=== PATIENT | male | born 1955 | race Hispanic/Latino ===

== ENCOUNTER 2017-08-08 18:55 | Inpatient (IN) | payer MEDICARE, OTHER ==
[~2017-08-08] VITALS: Ht 177.8 cm; Wt 86.3 kg
[~2017-08-08 18:55] MED LIST: ASPI81TA40 PO; ATOR40TA69 PO; ISOS120T10 PO; LISI10TA7 PO; METO25TA6 PO; RANO10003 PO; SPIR25TA6 PO
[2017-08-08] MEDS ORDERED: ASPIRIN 325 MG TABLET ONE (19:46)
[2017-08-08] MEDS ORDERED: NITROGLYCERIN 1GM/1 INCH PACKET TD ONE (19:46)
[2017-08-08 19:49] LABS: BASOPHILS % (AUTO) 0.4 % (0.0-5.0); EOSINOPHILS % (AUTO) 0.4 % (0.0-8.0); HEMATOCRIT 34.9 % (42-54); LYMPHOCYTES % (AUTO) 22.5 % (21.0-51.0); MEAN CORPUSCULAR HEMOGLOBIN 30.2 pg (27.0-33.0); MEAN CORPUSCULAR HGB CONC 34.9 g/dL (32.0-36.0); MEAN CORPUSCULAR VOLUME 86.6 fL (79-99); MONOCYTES % (AUTO) 8.7 % (3.0-13.0); PLATELET COUNT (AUTO) 229 K/uL (130-400); RED BLOOD CELL COUNT(AUTO) 4.03 MIL/uL (4.50-6.20); RED CELL DISTRIBUTION WIDTH 12.9 % (11.0-15.5); WHITE BLOOD COUNT (AUTO) 7.4 K/uL (4.8-10.8)
[2017-08-08 19:50] LABS: APPEARANCE,URINE Clear (CLEAR); BILIRUBIN,URINE Negative (NEGATIVE); COLOR,URINE Dark Yellow (YELLOW); GLUCOSE, URINE (UA) Negative (NEGATIVE); KETONES,URINE Negative (NEGATIVE); LEUKOCYTE ESTERASE ,URINE Negative (NEGATIVE); NITRATE,URINE Negative (NEGATIVE); OCCULT BLOOD,URINE Negative (NEGATIVE); PH,URINE 5.5 (5.0-8.0); PROTEIN,URINE POS 1+ (NEGATIVE)
[2017-08-08 19:58] LABS: CARBON DIOXIDE 25 mmol/L (21-32); CHLORIDE 102 mmol/L (101-111); CREATININE 1.1 mg/dL (0.5-1.5); GLOMERULAR FILTR. RATE CALC 73 mL/min (>60); GLUCOSE,RANDOM 100 mg/dL (70-105); POTASSIUM 4.1 mmol/L (3.5-5.1); SODIUM SERUM 137 mmol/L (136-145); UREA NITROGEN, BLOOD 14 mg/dL (7-18)
[2017-08-08 19:59] LABS: INR 1.13 (0.85-1.15); PARTIAL THROMBOPLASTIN TIME 29.6 SEC (26.3-35.5); PROTHROMBIN TIME 11.8 SEC (9.6-11.6)
[2017-08-08 20:06] LABS: BACTERIA,URINE None Seen /HPF (None Seen); MUCUS,URINE Moderate LPF (None Seen); RBC,URINE None Seen /HPF (0-1); SQUAMOUS EPITHELIAL CELL,UR 0-2 /HPF (0-2); WBC,URINE None Seen /HPF (0-1)
[2017-08-08 20:12] LABS: ALANINE AMINOTRANSFERASE 22 U/L (12-78); ALBUMIN 2.5 g/dL (3.5-5.0); ASPARTATE AMINOTRANSFERASE 26 U/L (10-37); BILIRUBIN,TOTAL 0.5 mg/dL (0.2-1.0); CREATINE KINASE MB < 0.5 ng/mL (0.5-3.6); CREATINE KINASE, TOTAL 43 U/L (21-232); MYOGLOBIN 29 ng/mL (10-92); TOTAL PROTEIN, SERUM 8.1 g/dL (6.0-8.3); TROPONIN I < 0.04 ng/mL (0.00-0.06)
[2017-08-08] MEDS ORDERED: CEFTRIAXONE SODIUM 1 GM ONE (22:43)
[2017-08-08] MEDS ORDERED: AZITHROMYCIN 250 MG TABLET PO ONE (22:43)
[2017-08-09] VITALS (7 sets, daily range): BP systolic 96–123; BP diastolic 57–72
[2017-08-09] MEDS ORDERED: IOPAMIDOL-370 75 ML VIAL IV ONE (00:13)
[2017-08-09] MEDS ORDERED: ISOVUE-370 50ML VIAL IV ONE (00:44)
[2017-08-09] MEDS ORDERED: HYDRALAZINE HCL 20 MG/ML VIAL IV PRN (00:45)
[2017-08-09] MEDS ORDERED: CLOP75TA14 PO (02:22)
[2017-08-09] MEDS ORDERED: LISI-617 PO (02:22)
[2017-08-09] MEDS ORDERED: ACETAMINOPHEN EXTRA STRENGTH 500 MG TABLET PO PRN (03:45)
[2017-08-09] MEDS ORDERED: ONDANSETRON HCL MDV 20ML 2 MG/ML VIAL IVP PRN (03:45)
[2017-08-09] MEDS: CEFTRIAXONE SODIUM 1 GM IVP SCH (04:00)
[2017-08-09] MEDS: AZITHROMYCIN 500MG+NS 250ML 250 ML IV SCH (04:00)
[2017-08-09 04:59] LABS: BASOPHILS % (AUTO) 0.3 % (0.0-5.0); EOSINOPHILS % (AUTO) 0.3 % (0.0-8.0); HEMATOCRIT 32.8 % (42-54); LYMPHOCYTES % (AUTO) 26.9 % (21.0-51.0); MEAN CORPUSCULAR HEMOGLOBIN 30.8 pg (27.0-33.0); MEAN CORPUSCULAR HGB CONC 35.2 g/dL (32.0-36.0); MEAN CORPUSCULAR VOLUME 87.5 fL (79-99); MONOCYTES % (AUTO) 10.7 % (3.0-13.0); NEUTROPHILS % (AUTO) 61.8 % (40.0-77.0); PLATELET COUNT (AUTO) 217 K/uL (130-400); RED BLOOD CELL COUNT(AUTO) 3.75 MIL/uL (4.50-6.20); RED CELL DISTRIBUTION WIDTH 12.9 % (11.0-15.5); WHITE BLOOD COUNT (AUTO) 8.4 K/uL (4.8-10.8)
[2017-08-09] MEDS: IPRATROPIUM/ALBUTEROL SULFATE 3 ML SOLUTION IH SCH ×3 (05:05→19:10)
[2017-08-09 05:19] LABS: ALBUMIN 2.3 g/dL (3.5-5.0); BILIRUBIN,TOTAL 0.5 mg/dL (0.2-1.0); CREATININE 1.1 mg/dL (0.5-1.5); POTASSIUM 3.8 mmol/L (3.5-5.1); TOTAL PROTEIN, SERUM 7.7 g/dL (6.0-8.3)
[2017-08-09] MEDS: GUAIFENESIN-DM 200/20 MG 10 ML PO SCH ×3 (08:57→19:48)
[2017-08-09] MEDS: FAMOTIDINE 20MG TAB 20 MG TAB PO SCH ×2 (08:57→19:46)
[2017-08-09] MEDS: ENOXAPARIN SODIUM 40 MG/0.4 ML SYRINGE SQ SCH (08:58)
[2017-08-10] MEDS: IPRATROPIUM/ALBUTEROL SULFATE 3 ML SOLUTION IH SCH ×5 (00:42→23:20)
[2017-08-10 04:00] VITALS: BP 98/56
[2017-08-10] MEDS: AZITHROMYCIN 500MG+NS 250ML 250 ML IV SCH (04:35)
[2017-08-10] MEDS: CEFTRIAXONE SODIUM 1 GM IVP SCH (04:35)
[2017-08-10 05:15] LABS: BASOPHILS % (AUTO) 0.4 % (0.0-5.0); EOSINOPHILS % (AUTO) 0.2 % (0.0-8.0); HEMATOCRIT 32.5 % (42-54); MEAN CORPUSCULAR HEMOGLOBIN 30.6 pg (27.0-33.0); MEAN CORPUSCULAR HGB CONC 35.2 g/dL (32.0-36.0); NEUTROPHILS % (AUTO) 65.4 % (40.0-77.0); PLATELET COUNT (AUTO) 227 K/uL (130-400); RED BLOOD CELL COUNT(AUTO) 3.73 MIL/uL (4.50-6.20); RED CELL DISTRIBUTION WIDTH 12.8 % (11.0-15.5); WHITE BLOOD COUNT (AUTO) 6.3 K/uL (4.8-10.8)
[2017-08-10 05:26] LABS: POTASSIUM 3.8 mmol/L (3.5-5.1)
[2017-08-10 07:55] VITALS: BP 98/57
[2017-08-10] MEDS: GUAIFENESIN-DM 200/20 MG 10 ML PO SCH ×3 (08:32→21:20)
[2017-08-10] MEDS: FAMOTIDINE 20MG TAB 20 MG TAB PO SCH ×2 (08:32→21:19)
[2017-08-10] MEDS: ENOXAPARIN SODIUM 40 MG/0.4 ML SYRINGE SQ SCH (08:33)
[2017-08-10 11:14] VITALS: BP 100/61
[2017-08-10 16:43] VITALS: BP 100/64
[2017-08-10 19:40] VITALS: BP 110/63
[2017-08-10 23:25] VITALS: BP 115/65
[2017-08-11 03:45] VITALS: BP 105/62
[2017-08-11] MEDS: CEFTRIAXONE SODIUM 1 GM IVP SCH (05:05)
[2017-08-11] MEDS: AZITHROMYCIN 500MG+NS 250ML 250 ML IV SCH (05:05)
[2017-08-11] MEDS: IPRATROPIUM/ALBUTEROL SULFATE 3 ML SOLUTION IH SCH ×3 (05:55→19:09)
[2017-08-11] MEDS: FAMOTIDINE 20MG TAB 20 MG TAB PO SCH ×2 (08:28→19:59)
[2017-08-11] MEDS: GUAIFENESIN-DM 200/20 MG 10 ML PO SCH ×3 (08:28→19:59)
[2017-08-11] MEDS: ENOXAPARIN SODIUM 40 MG/0.4 ML SYRINGE SQ SCH (08:32)
[2017-08-11 08:46] VITALS: BP 97/55
[2017-08-11 11:43] VITALS: BP 100/64
[2017-08-11 16:55] VITALS: BP 103/58
[2017-08-11 20:00] VITALS: BP 105/60
[2017-08-12] VITALS: BP 117/72
[2017-08-12] MEDS: IPRATROPIUM/ALBUTEROL SULFATE 3 ML SOLUTION IH SCH ×5 (00:20→22:57)
[2017-08-12 04:00] VITALS: BP 107/65
[2017-08-12] MEDS: CEFTRIAXONE SODIUM 1 GM IVP SCH (04:37)
[2017-08-12] MEDS: AZITHROMYCIN 500MG+NS 250ML 250 ML IV SCH (04:37)
[2017-08-12 04:45] LABS: BASOPHILS % (AUTO) 0.6 % (0.0-5.0); EOSINOPHILS % (AUTO) 2.5 % (0.0-8.0); HEMATOCRIT 32.2 % (42-54); LYMPHOCYTES % (AUTO) 22.9 % (21.0-51.0); MEAN CORPUSCULAR HEMOGLOBIN 31.2 pg (27.0-33.0); MEAN CORPUSCULAR HGB CONC 35.7 g/dL (32.0-36.0); MEAN CORPUSCULAR VOLUME 87.6 fL (79-99); MONOCYTES % (AUTO) 8.8 % (3.0-13.0); NEUTROPHILS % (AUTO) 65.2 % (40.0-77.0); PLATELET COUNT (AUTO) 285 K/uL (130-400); RED BLOOD CELL COUNT(AUTO) 3.67 MIL/uL (4.50-6.20); WHITE BLOOD COUNT (AUTO) 5.8 K/uL (4.8-10.8)
[2017-08-12 07:26] VITALS: BP 102/70
[2017-08-12] MEDS: FAMOTIDINE 20MG TAB 20 MG TAB PO SCH ×2 (08:38→21:43)
[2017-08-12] MEDS: GUAIFENESIN-DM 200/20 MG 10 ML PO SCH ×3 (08:38→21:43)
[2017-08-12] MEDS: ENOXAPARIN SODIUM 40 MG/0.4 ML SYRINGE SQ SCH (08:39)
[2017-08-12 12:12] VITALS: BP 96/53
[2017-08-12 17:29] VITALS: BP 111/59
[2017-08-12 19:45] VITALS: BP 114/59
[2017-08-13] VITALS: BP 102/55
[2017-08-13 03:57] LABS: BASOPHILS % (AUTO) 0.7 % (0.0-5.0); LYMPHOCYTES % (AUTO) 22.3 % (21.0-51.0); MEAN CORPUSCULAR HEMOGLOBIN 29.6 pg (27.0-33.0); MEAN CORPUSCULAR HGB CONC 34.3 g/dL (32.0-36.0); MEAN CORPUSCULAR VOLUME 86.1 fL (79-99); PLATELET COUNT (AUTO) 311 K/uL (130-400); RED BLOOD CELL COUNT(AUTO) 3.84 MIL/uL (4.50-6.20); RED CELL DISTRIBUTION WIDTH 12.8 % (11.0-15.5); WHITE BLOOD COUNT (AUTO) 5.9 K/uL (4.8-10.8)
[2017-08-13 04:10] LABS: CREATININE 0.9 mg/dL (0.5-1.5); POTASSIUM 4.1 mmol/L (3.5-5.1)
[2017-08-13 04:24] VITALS: BP 113/60
[2017-08-13] MEDS: CEFTRIAXONE SODIUM 1 GM IVP SCH (04:39)
[2017-08-13] MEDS: AZITHROMYCIN 500MG+NS 250ML 250 ML IV SCH (04:39)
[2017-08-13 07:30] VITALS: BP 113/64
[2017-08-13] MEDS: IPRATROPIUM/ALBUTEROL SULFATE 3 ML SOLUTION IH SCH ×2 (07:30→11:59)
[2017-08-13] MEDS: ENOXAPARIN SODIUM 40 MG/0.4 ML SYRINGE SQ SCH (09:03)
[2017-08-13] MEDS: FAMOTIDINE 20MG TAB 20 MG TAB PO SCH (09:04)
[2017-08-13] MEDS: GUAIFENESIN-DM 200/20 MG 10 ML PO SCH (09:04)
[2017-08-13 11:00] VITALS: BP 104/60
[2017-08-13] MEDS ORDERED: LEVO500T2 PO (11:42)
[2017-08-13] MEDS ORDERED: FLUC200T8 PO (11:45)
[2017-08-13] MEDS ORDERED: IPRA3AMP24 IH (11:45)
[2017-08-13] MEDS ORDERED: GUAI5SYR PO (12:08)
== END 2017-08-13 15:25 | disposition home or self-care (01) | DRG 190 ==
LOC: EDH 18:55 → EDHIP 23:30 → 4AH 08-09 01:33
PROVIDERS: ADMIT Family Medicine; ATTEND Family Medicine
DX: J44.0 Chronic obstructive pulmonary disease with (acute) lower respiratory infection (principal); J18.9 Pneumonia, unspecified organism; I10 Essential (primary) hypertension; I25.10 Atherosclerotic heart disease of native coronary artery without angina pectoris; F10.10 Alcohol abuse, uncomplicated; F17.210 Nicotine dependence, cigarettes, uncomplicated; R63.4 Abnormal weight loss; D64.9 Anemia, unspecified; E78.5 Hyperlipidemia, unspecified; Z95.1 Presence of aortocoronary bypass graft
CPT/HCPCS: 36415; 71045; 71046; 71250; 71260; 80048; 80053; 81001; 82550; 82553; 83605; 83874; 84484; 85025; 85610; 85730; 87040; 87071; 87077; 87088; 87106; 87186; 87205; 87633; 93005; 94640; 94664; A4218; J0456; J0696; J1650; Q9967

== ENCOUNTER 2017-12-01 17:16 | Inpatient (IN) | payer OTHER ==
[~2017-12-01] VITALS: Ht 175.3 cm; Wt 80.7 kg
[~2017-12-01 17:16] MED LIST changes: -ASPI81TA40 PO; +CLOP75TA14 PO; -ISOS120T10 PO; +ISOS60TA4 PO; +LEVO75TA10 PO; -LISI10TA7 PO; +LORA10TA7 PO; -METO25TA6 PO; -SPIR25TA6 PO
[2017-12-01 17:38] LABS: BASOPHILS % (AUTO) 0.2 % (0.0-5.0); EOSINOPHILS % (AUTO) 0.1 % (0.0-8.0); HEMATOCRIT 31.8 % (42-54); LYMPHOCYTES % (AUTO) 13.6 % (21.0-51.0); MEAN CORPUSCULAR HEMOGLOBIN 28.1 pg (27.0-33.0); MEAN CORPUSCULAR HGB CONC 33.3 g/dL (32.0-36.0); MEAN CORPUSCULAR VOLUME 84.3 fL (79-99); MONOCYTES % (AUTO) 8.8 % (3.0-13.0); NEUTROPHILS % (AUTO) 77.3 % (40.0-77.0); NUCLEATED RED BLOOD CELLS 0.1 % (0.0-0.19); PLATELET COUNT (AUTO) 336 K/uL (130-400); RED BLOOD CELL COUNT(AUTO) 3.77 MIL/uL (4.50-6.20); RED CELL DISTRIBUTION WIDTH 18.1 % (11.0-15.5); WHITE BLOOD COUNT (AUTO) 8.9 K/uL (4.8-10.8)
[2017-12-01 17:45] LABS: APPEARANCE,URINE Clear (CLEAR); BILIRUBIN,URINE Negative (NEGATIVE); COLOR,URINE Yellow (YELLOW); GLUCOSE, URINE (UA) Negative (NEGATIVE); KETONES,URINE Trace mg/dL (NEGATIVE); LEUKOCYTE ESTERASE ,URINE Trace (NEGATIVE); NITRATE,URINE Negative (NEGATIVE); OCCULT BLOOD,URINE Negative (NEGATIVE); PH,URINE 6.5 (5.0-8.0); PROTEIN,URINE Trace (NEGATIVE)
[2017-12-01 17:55] LABS: INR 1.13 (0.85-1.15); PARTIAL THROMBOPLASTIN TIME 29.7 SEC (26.3-35.5); PROTHROMBIN TIME 11.8 SEC (9.6-11.6)
[2017-12-01 17:57] LABS: CARBON DIOXIDE 25 mmol/L (21-32); CHLORIDE 99 mmol/L (101-111); GLOMERULAR FILTR. RATE CALC 81 mL/min (>60); GLUCOSE,RANDOM 103 mg/dL (70-105); SODIUM SERUM 133 mmol/L (136-145); UREA NITROGEN, BLOOD 12 mg/dL (7-18)
[2017-12-01] MEDS ORDERED: CEFTRIAXONE SODIUM 1 GM ONE (17:59)
[2017-12-01 18:07] LABS: ALANINE AMINOTRANSFERASE 17 U/L (12-78); ALBUMIN 2.7 g/dL (3.5-5.0); ASPARTATE AMINOTRANSFERASE 17 U/L (10-37); BILIRUBIN,TOTAL 0.3 mg/dL (0.2-1.0); CREATINE KINASE, TOTAL 14 U/L (21-232); MYOGLOBIN 13 ng/mL (10-92); TOTAL PROTEIN, SERUM 8.7 g/dL (6.0-8.3); TROPONIN I < 0.04 ng/mL (0.00-0.06)
[2017-12-01 18:12] LABS: BACTERIA,URINE None Seen /HPF (None Seen); RBC,URINE None Seen /HPF (0-1); SQUAMOUS EPITHELIAL CELL,UR 0-2 /HPF (0-2); WBC,URINE 0-1 /HPF (0-1)
[2017-12-01] MEDS ORDERED: ZOSYN 3.375GM+NS 50ML 50 ML IV ONE (18:43)
[2017-12-01] MEDS ORDERED: AZITHROMYCIN 250 MG TABLET PO ONE (18:44)
[2017-12-01 19:24] LABS: AMPHET/METH SCREEN,URINE NEGATIVE (NEGATIVE); BARBITURATE SCREEN, URINE NEGATIVE (NEGATIVE); BENZODIAZEPINES SCREEN,URINE NEGATIVE (NEGATIVE); CANNABINOID SCREEN,URINE NEGATIVE (NEGATIVE); COCAINE SCREEN,URINE NEGATIVE (NEGATIVE); OPIATE SCREEN,URINE NEGATIVE (NEGATIVE); PHENCYCLIDINE SCREEN,URINE NEGATIVE (NEGATIVE)
[2017-12-01 21:40] VITALS: BP 130/52
[2017-12-01] MEDS: ACETAMINOPHEN 325 MG TAB PO PRN (22:34)
[2017-12-01] MEDS ORDERED: NITR0.4T50 SL (22:46)
[2017-12-01] MEDS ORDERED: AEC81 PO (22:46)
[2017-12-01] MEDS ORDERED: METO50TA18 PO (22:46)
[2017-12-01] MEDS ORDERED: LISI-617 PO (22:46)
[2017-12-02] VITALS: BP 102/64
[2017-12-02 03:25] VITALS: BP 111/61
[2017-12-02 05:09] LABS: HEMATOCRIT 30.3 % (42-54); MEAN CORPUSCULAR HEMOGLOBIN 28.9 pg (27.0-33.0); MEAN CORPUSCULAR VOLUME 85.2 fL (79-99); PLATELET COUNT (AUTO) 354 K/uL (130-400); RED BLOOD CELL COUNT(AUTO) 3.56 MIL/uL (4.50-6.20); RED CELL DISTRIBUTION WIDTH 18.4 % (11.0-15.5); WHITE BLOOD COUNT (AUTO) 7.3 K/uL (4.8-10.8)
[2017-12-02 05:26] LABS: ALBUMIN 2.3 g/dL (3.5-5.0); BILIRUBIN,TOTAL 0.4 mg/dL (0.2-1.0); POTASSIUM 4.7 mmol/L (3.5-5.1); TOTAL PROTEIN, SERUM 7.9 g/dL (6.0-8.3)
[2017-12-02 08:12] VITALS: BP 119/67
[2017-12-02 12:12] VITALS: BP 102/50
[2017-12-02 15:30] VITALS: BP 97/63
[2017-12-02] MEDS ORDERED: CEFTRIAXONE SODIUM 1 GM IVP SCH (18:00)
[2017-12-02] MEDS ORDERED: AZITHROMYCIN 500MG+NS 250ML 250 ML IV SCH (18:00)
[2017-12-02] MEDS: CEFEPIME HCL 1 GM VIAL IVP SCH ×2 (18:00→21:58)
[2017-12-02] MEDS: LEVOFLOXACIN 500 MG/D5W 100 ML 100 ML IV SCH (18:08)
[2017-12-02] MEDS: FLUCONAZOLE 200 MG/NS 100 ML 100 ML IV SCH (18:08)
[2017-12-02 20:00] VITALS: BP 102/62
[2017-12-02] MEDS: BACTRIM IV SCH (21:58)
[2017-12-02] MEDS: SODIUM CHLORIDE 0.9% IV SCH (21:58)
[2017-12-03] VITALS: BP 100/60
[2017-12-03] MEDS: ACETAMINOPHEN 325 MG TAB PO PRN (00:54)
[2017-12-03] MEDS: SODIUM CHLORIDE 0.9% IV SCH ×3 (03:39→20:55)
[2017-12-03] MEDS: BACTRIM IV SCH ×3 (03:39→20:55)
[2017-12-03 04:00] VITALS: BP 98/68
[2017-12-03] MEDS: CEFEPIME HCL 1 GM VIAL IVP SCH ×3 (05:58→23:10)
[2017-12-03 07:30] VITALS: BP 99/67
[2017-12-03] MEDS: ENOXAPARIN SODIUM 40 MG/0.4 ML SYRINGE SQ SCH (08:50)
[2017-12-03 11:00] VITALS: BP 90/64
[2017-12-03] MEDS: LEVOFLOXACIN 500 MG/D5W 100 ML 100 ML IV SCH (14:36)
[2017-12-03] MEDS: FLUCONAZOLE 200 MG/NS 100 ML 100 ML IV SCH (14:36)
[2017-12-03 15:58] VITALS: BP 100/63
[2017-12-03 20:00] VITALS: BP 119/71
[2017-12-04] VITALS (7 sets, daily range): BP systolic 84–109; BP diastolic 48–66
[2017-12-04] MEDS: BACTRIM IV SCH ×3 (04:53→17:44)
[2017-12-04] MEDS: SODIUM CHLORIDE 0.9% IV SCH ×3 (04:53→17:44)
[2017-12-04 04:58] LABS: HEMATOCRIT 31.2 % (42-54); MEAN CORPUSCULAR HEMOGLOBIN 28.7 pg (27.0-33.0); MEAN CORPUSCULAR HGB CONC 33.6 g/dL (32.0-36.0); MEAN CORPUSCULAR VOLUME 85.3 fL (79-99); PLATELET COUNT (AUTO) 351 K/uL (130-400); RED BLOOD CELL COUNT(AUTO) 3.65 MIL/uL (4.50-6.20); RED CELL DISTRIBUTION WIDTH 18.3 % (11.0-15.5); WHITE BLOOD COUNT (AUTO) 5.4 K/uL (4.8-10.8)
[2017-12-04] MEDS: CEFEPIME HCL 1 GM VIAL IVP SCH ×3 (05:13→22:09)
[2017-12-04 05:17] LABS: ALBUMIN 2.3 g/dL (3.5-5.0); BILIRUBIN,TOTAL 0.2 mg/dL (0.2-1.0); CREATININE 1.1 mg/dL (0.5-1.5); MAGNESIUM 1.9 mg/dL (1.80-2.40); POTASSIUM 4.6 mmol/L (3.5-5.1); TOTAL PROTEIN, SERUM 7.9 g/dL (6.0-8.3)
[2017-12-04] MEDS: ENOXAPARIN SODIUM 40 MG/0.4 ML SYRINGE SQ SCH (08:02)
[2017-12-04 08:19] LABS: HEPATITIS A ANTIBODY IGM Negative (Negative); HEPATITIS B CORE IGM Negative (Negative); HEPATITIS Bs ANTIGEN SCREEN P Negative (Negative)
[2017-12-04] MEDS: FLUCONAZOLE 200 MG/NS 100 ML 100 ML IV SCH (14:33)
[2017-12-04] MEDS: SULFAMETHOXAZOLE IV SCH (18:59)
[2017-12-04] MEDS: DEXTROSE 5% IV SCH (18:59)
[2017-12-04] MEDS: TRIMETHOPRIM IV SCH (18:59)
[2017-12-05] VITALS: BP 105/63
[2017-12-05] MEDS: SULFAMETHOXAZOLE IV SCH ×3 (02:23→20:32)
[2017-12-05] MEDS: DEXTROSE 5% IV SCH ×3 (02:23→20:32)
[2017-12-05] MEDS: TRIMETHOPRIM IV SCH ×3 (02:23→20:32)
[2017-12-05 04:00] VITALS: BP 101/50
[2017-12-05] MEDS: CEFEPIME HCL 1 GM VIAL IVP SCH ×3 (06:14→20:32)
[2017-12-05 07:00] VITALS: BP 90/55
[2017-12-05] MEDS: ENOXAPARIN SODIUM 40 MG/0.4 ML SYRINGE SQ SCH (09:13)
[2017-12-05] MEDS: ACETAMINOPHEN 325 MG TAB PO PRN (09:16)
[2017-12-05 11:00] VITALS: BP 93/54
[2017-12-05] MEDS: FLUCONAZOLE 200 MG/NS 100 ML 100 ML IV SCH (13:56)
[2017-12-05 16:00] VITALS: BP 105/60
[2017-12-05 20:00] VITALS: BP 106/64
[2017-12-05] MEDS: DRONABINOL 2.5 MG CAP PO SCH (20:32)
[2017-12-05] MEDS ORDERED: SODIUM CHLORIDE 3% FOR INHALATION 4 ML/AMP VIAL.NEB IH ONE (21:52)
[2017-12-06] VITALS (7 sets, daily range): BP systolic 95–111; BP diastolic 57–65
[2017-12-06] MEDS: TRIMETHOPRIM IV SCH ×3 (03:08→19:44)
[2017-12-06] MEDS: SULFAMETHOXAZOLE IV SCH ×3 (03:08→19:44)
[2017-12-06] MEDS: DEXTROSE 5% IV SCH ×3 (03:08→19:44)
[2017-12-06] MEDS: CEFEPIME HCL 1 GM VIAL IVP SCH ×3 (05:28→23:25)
[2017-12-06 05:55] LABS: HEMATOCRIT 27.7 % (42-54); MEAN CORPUSCULAR HEMOGLOBIN 28.6 pg (27.0-33.0); MEAN CORPUSCULAR HGB CONC 34.2 g/dL (32.0-36.0); MEAN CORPUSCULAR VOLUME 83.7 fL (79-99); PLATELET COUNT (AUTO) 318 K/uL (130-400); RED BLOOD CELL COUNT(AUTO) 3.31 MIL/uL (4.50-6.20); RED CELL DISTRIBUTION WIDTH 17.9 % (11.0-15.5)
[2017-12-06] MEDS ORDERED: SODIUM CHLORIDE 3% FOR INHALATION 4 ML/AMP VIAL.NEB IH ONE ×2 (05:59→10:18)
[2017-12-06 06:08] LABS: ALBUMIN 2.3 g/dL (3.5-5.0); BILIRUBIN,TOTAL 0.2 mg/dL (0.2-1.0); POTASSIUM 4.5 mmol/L (3.5-5.1); TOTAL PROTEIN, SERUM 7.7 g/dL (6.0-8.3)
[2017-12-06] MEDS: DRONABINOL 2.5 MG CAP PO SCH ×2 (11:03→20:43)
[2017-12-06] MEDS: ENOXAPARIN SODIUM 40 MG/0.4 ML SYRINGE SQ SCH (11:04)
[2017-12-06] MEDS: FLUCONAZOLE 200 MG/NS 100 ML 100 ML IV SCH (17:48)
[2017-12-07] MEDS: TRIMETHOPRIM IV SCH ×3 (02:12→18:39)
[2017-12-07] MEDS: DEXTROSE 5% IV SCH ×3 (02:12→18:39)
[2017-12-07] MEDS: SULFAMETHOXAZOLE IV SCH ×3 (02:12→18:39)
[2017-12-07 03:13] LABS: RUBEOLA (MEASLES) IGG >300.0 AU/mL (Immune >29.9)
[2017-12-07 04:00] VITALS: BP 111/69
[2017-12-07] MEDS: CEFEPIME HCL 1 GM VIAL IVP SCH ×3 (05:02→19:47)
[2017-12-07 08:46] VITALS: BP 117/71
[2017-12-07] MEDS: DRONABINOL 2.5 MG CAP PO SCH ×2 (11:34→19:47)
[2017-12-07] MEDS: ENOXAPARIN SODIUM 40 MG/0.4 ML SYRINGE SQ SCH (11:56)
[2017-12-07 12:24] VITALS: BP 137/76
[2017-12-07] MEDS: FLUCONAZOLE 200 MG/NS 100 ML 100 ML IV SCH (14:30)
[2017-12-07 17:19] VITALS: BP 108/65
[2017-12-07 20:00] VITALS: BP 136/81
[2017-12-07 23:36] VITALS: BP 104/62
[2017-12-08] MEDS: DEXTROSE 5% IV SCH ×3 (01:56→20:54)
[2017-12-08] MEDS: TRIMETHOPRIM IV SCH ×3 (01:56→20:54)
[2017-12-08] MEDS: SULFAMETHOXAZOLE IV SCH ×3 (01:56→20:54)
[2017-12-08 03:52] VITALS: BP 105/60
[2017-12-08] MEDS: CEFEPIME HCL 1 GM VIAL IVP SCH ×3 (05:09→23:08)
[2017-12-08 08:00] VITALS: BP 102/57
[2017-12-08] MEDS: DRONABINOL 2.5 MG CAP PO SCH ×2 (08:21→20:54)
[2017-12-08] MEDS: ENOXAPARIN SODIUM 40 MG/0.4 ML SYRINGE SQ SCH (08:22)
[2017-12-08 12:00] VITALS: BP 103/66
[2017-12-08] MEDS: FLUCONAZOLE 200 MG/NS 100 ML 100 ML IV SCH (15:25)
[2017-12-08 16:00] VITALS: BP 110/59
[2017-12-08 20:00] VITALS: BP 113/60
[2017-12-09] VITALS: BP 90/54
[2017-12-09] MEDS: TRIMETHOPRIM IV SCH ×3 (03:25→21:10)
[2017-12-09] MEDS: DEXTROSE 5% IV SCH ×3 (03:25→21:10)
[2017-12-09] MEDS: SULFAMETHOXAZOLE IV SCH ×3 (03:25→21:10)
[2017-12-09 04:00] VITALS: BP 94/61
[2017-12-09 04:45] LABS: MEAN CORPUSCULAR HEMOGLOBIN 28.3 pg (27.0-33.0); MEAN CORPUSCULAR HGB CONC 33.8 g/dL (32.0-36.0); MEAN CORPUSCULAR VOLUME 83.7 fL (79-99); NUCLEATED RED BLOOD CELLS 0.2 % (0.0-0.19); PLATELET COUNT (AUTO) 311 K/uL (130-400); RED BLOOD CELL COUNT(AUTO) 3.47 MIL/uL (4.50-6.20); RED CELL DISTRIBUTION WIDTH 18.1 % (11.0-15.5); WHITE BLOOD COUNT (AUTO) 3.6 K/uL (4.8-10.8)
[2017-12-09] MEDS: CEFEPIME HCL 1 GM VIAL IVP SCH ×3 (05:00→23:19)
[2017-12-09 05:01] LABS: ALBUMIN 2.5 g/dL (3.5-5.0); BILIRUBIN,TOTAL 0.1 mg/dL (0.2-1.0); CREATININE 1.2 mg/dL (0.5-1.5); MAGNESIUM 1.8 mg/dL (1.80-2.40); POTASSIUM 4.6 mmol/L (3.5-5.1); TOTAL PROTEIN, SERUM 7.8 g/dL (6.0-8.3)
[2017-12-09 08:17] VITALS: BP 113/67
[2017-12-09] MEDS: ENOXAPARIN SODIUM 40 MG/0.4 ML SYRINGE SQ SCH (10:52)
[2017-12-09] MEDS: DRONABINOL 2.5 MG CAP PO SCH ×2 (10:53→21:10)
[2017-12-09 12:19] VITALS: BP 117/66
[2017-12-09] MEDS: FLUCONAZOLE 200 MG/NS 100 ML 100 ML IV SCH (15:51)
[2017-12-09 17:32] VITALS: BP 98/65
[2017-12-09 20:00] VITALS: BP 114/67
[2017-12-09] MEDS: PREDNISONE 20 MG TABLET PO SCH (21:10)
[2017-12-10] VITALS: BP 90/64
[2017-12-10] MEDS: TRIMETHOPRIM IV SCH ×2 (03:25→10:43)
[2017-12-10] MEDS: DEXTROSE 5% IV SCH ×2 (03:25→10:43)
[2017-12-10] MEDS: SULFAMETHOXAZOLE IV SCH ×2 (03:25→10:43)
[2017-12-10 04:00] VITALS: BP 105/67
[2017-12-10 05:02] LABS: HEMATOCRIT 31.1 % (42-54); MEAN CORPUSCULAR HEMOGLOBIN 28.9 pg (27.0-33.0); MEAN CORPUSCULAR HGB CONC 34.5 g/dL (32.0-36.0); MEAN CORPUSCULAR VOLUME 83.9 fL (79-99); NUCLEATED RED BLOOD CELLS 0.2 % (0.0-0.19); PLATELET COUNT (AUTO) 349 K/uL (130-400); RED CELL DISTRIBUTION WIDTH 18.4 % (11.0-15.5)
[2017-12-10 05:12] LABS: CREATININE 1.1 mg/dL (0.5-1.5); MAGNESIUM 2.1 mg/dL (1.80-2.40); POTASSIUM 5.1 mmol/L (3.5-5.1)
[2017-12-10] MEDS: CEFEPIME HCL 1 GM VIAL IVP SCH ×2 (05:42→15:53)
[2017-12-10 08:11] VITALS: BP 109/67
[2017-12-10] MEDS: PREDNISONE 20 MG TABLET PO SCH (09:10)
[2017-12-10] MEDS: DRONABINOL 2.5 MG CAP PO SCH (09:10)
[2017-12-10] MEDS: ENOXAPARIN SODIUM 40 MG/0.4 ML SYRINGE SQ SCH (09:14)
[2017-12-10 11:36] VITALS: BP 98/63
[2017-12-10 15:36] VITALS: BP 96/58
[2017-12-10] MEDS: FLUCONAZOLE 200 MG/NS 100 ML 100 ML IV SCH (15:54)
== END 2017-12-10 20:31 | disposition home or self-care (01) | DRG 974 ==
LOC: EDH 17:16 → EDHIP 20:12 → 3BH 20:56 → 3CH 12-02 14:15
PROVIDERS: ADMIT Internal Medicine; ATTEND Internal Medicine
DX: B20 Human immunodeficiency virus [HIV] disease (principal); A41.9 Sepsis, unspecified organism; J96.90 Respiratory failure, unspecified, unspecified whether with hypoxia or hypercapnia; B59 Pneumocystosis; B37.0 Candidal stomatitis; R63.4 Abnormal weight loss; D64.9 Anemia, unspecified; I10 Essential (primary) hypertension; E78.5 Hyperlipidemia, unspecified; I25.10 Atherosclerotic heart disease of native coronary artery without angina pectoris; Z78.9 Other specified health status; Z87.891 Personal history of nicotine dependence; Z95.1 Presence of aortocoronary bypass graft; Z71.89 Other specified counseling
CPT/HCPCS: 36415; 71045; 71250; 80048; 80053; 80074; 80305; 81001; 82270; 82550; 83605; 83615; 83735; 83874; 84484; 85025; 85027; 85610; 85730; 86359; 86361; 86592; 86701; 86777; 86778; 86812; 87040; 87088; 87210; 87283; 87390; 87536; 87804; 87900; 87901; 93005; 94640; 99291; A4218; J0692; J0696; J1450; J1650; J1956; J2543; J3490; J7040; J7060; Q0167

== ENCOUNTER 2018-08-01 17:44 | Inpatient (IN) | payer OTHER | END 2018-08-05 13:40 | disposition home or self-care (01) | LOC: EDH 17:44 → EDHIP 19:40 → 2DH 22:26 | PROC: 021 Heart and Great Vessels, Bypass (ICD-10-PCS; principal; ~2018-08-01) | PROC: 4A023N7 Measurement of Cardiac Sampling and Pressure, Left Heart, Percutaneous Approach (ICD-10-PCS; ~2018-08-01) | PROC: B2161ZZ Fluoroscopy of Right and Left Heart using Low Osmolar Contrast (ICD-10-PCS; ~2018-08-01) | DX: I48.0 Paroxysmal atrial fibrillation (principal); I21.4 Non-ST elevation (NSTEMI) myocardial infarction; I24.9 Acute ischemic heart disease, unspecified; B20 Human immunodeficiency virus [HIV] disease; I25.5 Ischemic cardiomyopathy ==

== ENCOUNTER 2021-06-25 11:16 | Emergency (ER) | payer OTHER ==
[2021-06-25] VITALS (12 sets, daily range): BP systolic 143–168; BP diastolic 77–86
[~2021-06-25] VITALS: Ht 175.3 cm; Wt 104.3 kg
[~2021-06-25 11:16] MED LIST changes: +AMIO200T68 PO; -ATOR40TA69 PO; +ATOR40TA71 PO; +DARU1TAB PO; +DOCU-116 PO; +FLUC100T12 PO; -ISOS60TA4 PO; +ISOS60TA77 PO; +JULUCA PO; -LEVO75TA10 PO; +LISI5TAB21 PO; -LORA10TA7 PO; +METO-409 PO; +NITR0.4T SL; +PREN1TAB80 PO; +RIVA20TA PO; +SPIR25TA6 PO
[2021-06-25] MEDS ORDERED: GLUCAGON 1MG KIT 1 MG ML IV SCH (12:30)
[2021-06-25 13:24] LABS: BASOPHILS % (AUTO) 0.9 % (0.0-5.0); EOSINOPHILS % (AUTO) 6.4 % (0.0-8.0); HEMATOCRIT 44.9 % (42-54); LYMPHOCYTES % (AUTO) 26.8 % (21.0-51.0); MEAN CORPUSCULAR HGB CONC 33.2 g/dL (32.0-36.0); MEAN CORPUSCULAR VOLUME 93.5 fL (79-99); MONOCYTES % (AUTO) 7.2 % (3.0-13.0); PLATELET COUNT (AUTO) 209 K/uL (130-400); RED CELL DISTRIBUTION WIDTH 13.2 % (11.0-15.5); WHITE BLOOD COUNT (AUTO) 6.7 K/uL (4.8-10.8)
[2021-06-25 13:39] LABS: CREATININE 0.9 mg/dL (0.5-1.5); INR 1.15 (0.85-1.15); PROTHROMBIN TIME 12.4 SEC (9.6-11.6)
[2021-06-25 13:40] LABS: PARTIAL THROMBOPLASTIN TIME 29.9 SEC (26.3-35.5)
[2021-06-25 13:42] LABS: ALBUMIN 3.7 g/dL (3.5-5.0); BILIRUBIN,TOTAL 0.5 mg/dL (0.2-1.0); TOTAL PROTEIN, SERUM 7.8 g/dL (6.0-8.3)
[2021-06-25] MEDS ORDERED: LIDOCAINE PF 100MG/5ML (2%) SYRINGE 5ML ONE (14:11)
[2021-06-25] MEDS ORDERED: SUCCINYLCHOLINE 200MG/10ML SYR ONE (14:11)
[2021-06-25] MEDS ORDERED: PROPOFOL 10 MG/ML 20ML VIAL IV ONE (14:12)
== END 2021-06-25 16:43 | disposition home or self-care (01) ==
LOC: EDH 11:16
DX: T18.128A Food in esophagus causing other injury, initial encounter (principal); I11.0 Hypertensive heart disease with heart failure; E11.9 Type 2 diabetes mellitus without complications; E78.00 Pure hypercholesterolemia, unspecified; Z72.0 Tobacco use; Z98.890 Other specified postprocedural states; Z79.899 Other long term (current) drug therapy; X58.XXXA Exposure to other specified factors, initial encounter; Y93.89 Activity, other specified; Y92.89 Other specified places as the place of occurrence of the external cause; Y99.8 Other external cause status
CPT/HCPCS: 36415; 43239; 43247; 70360; 80053; 85025; 85610; 85730; 88305; 96374; 99285; A4215; A4222; A4223; A4606; A4657; A7002; J0330; J1610; J2001; J2704; J7030

== ENCOUNTER 2022-02-02 02:35 | Emergency (ER) | payer OTHER ==
[~2022-02-02] VITALS: Ht 177.8 cm; Wt 103.0 kg
[~2022-02-02 02:35] MED LIST changes: +CLOP-31 PO; -CLOP75TA14 PO
[2022-02-02 02:37] VITALS: BP 109/62
[2022-02-02] MEDS ORDERED: BENZONATATE 100 MG CAPSULE PO STA (06:06)
[2022-02-02] MEDS ORDERED: DOXYCYCLINE HYCLATE 100 MG TABLET PO ONE (06:30)
[2022-02-02] MEDS ORDERED: CEFTRIAXONE 1G VIAL IVP ONE (06:30)
[2022-02-02] MEDS ORDERED: IPRATROPIUM/ALBUTEROL SULFATE 3 ML SOLUTION IH ONE (06:30)
[2022-02-02 06:33] LABS: BASOPHILS % (AUTO) 0.7 % (0.0-5.0); EOSINOPHILS % (AUTO) 1.9 % (0.0-8.0); HEMATOCRIT 36.2 % (42-54); LYMPHOCYTES % (AUTO) 21.9 % (21.0-51.0); MEAN CORPUSCULAR HEMOGLOBIN 31.3 pg (27.0-33.0); MEAN CORPUSCULAR HGB CONC 33.4 g/dL (32.0-36.0); MEAN CORPUSCULAR VOLUME 93.5 fL (79-99); MONOCYTES % (AUTO) 6.5 % (3.0-13.0); NEUTROPHILS % (AUTO) 65.2 % (40.0-77.0); PLATELET COUNT (AUTO) 267 K/uL (130-400); RED BLOOD CELL COUNT(AUTO) 3.87 MIL/uL (4.50-6.20); WHITE BLOOD COUNT (AUTO) 9.9 K/uL (4.8-10.8)
[2022-02-02 06:41] LABS: ALBUMIN 2.8 g/dL (3.5-5.0); TOTAL PROTEIN, SERUM 7.5 g/dL (6.0-8.3)
[2022-02-02] MEDS ORDERED: BENZ-39 PO (07:15)
[2022-02-02] MEDS ORDERED: ALBUHFA IH (07:15)
[2022-02-02] MEDS ORDERED: DOXY-469 PO (07:15)
[2022-02-02] MEDS ORDERED: SOLU-MEDROL 125MG VIAL IVP ONE (07:30)
== END 2022-02-02 07:58 | disposition home or self-care (01) ==
LOC: EDH 02:35
DX: J18.9 Pneumonia, unspecified organism (principal); J45.909 Unspecified asthma, uncomplicated; F17.200 Nicotine dependence, unspecified, uncomplicated; E78.00 Pure hypercholesterolemia, unspecified; I10 Essential (primary) hypertension; Z79.899 Other long term (current) drug therapy; Z20.822 Contact with and (suspected) exposure to COVID-19
CPT/HCPCS: 99284; 96374; 71045; 87635; 96375; 80053; 83880; 85025; 87040 ×2; 87880; 87804 ×2; 83605; 36415; 94640; C9803; J2930; J0696